=== PATIENT | female | born 1970 | race Caucasian/White ===

== ENCOUNTER → 2016-08-21 | Outpatient (CLI) | payer BC ==
[~2016-08-21] MED LIST: IBUP600T44; LRT5 PO; PREDPOW63
--- NOTE | 2016-08-24 13:32 | MAMMOGRAPHY REPORT ---
BILATERAL DIGITAL SCREENING MAMMOGRAM TOMOSYNTHESIS WITH CAD: 08/21/2016 TECHNIQUE: Breast tomosynthesis in addition to standard 2D mammography was performed. Current study was also evaluated with a Computer Aided Detection (CAD) system. COMPARISON: Comparison is made to exams dated: 08/16/2015 mammogram, 08/15/2014 mammogram, 08/11/2012 mammogram, 08/22/2013 mammogram, 08/14/2013 mammogram, and 07/31/2011 mammogram - [facility]. BREAST COMPOSITION: The tissue of both breasts is heterogeneously dense, which may obscure small ma sses. FINDINGS: There is possible architectural distortion seen within the right superior posterior breas t on the MLO view only. While this may represent normal overlapping fibroglandular tissue, recommen d spot compression tomosynthesis views and possible breast ultrasound for further evaluation. The remainder of both breasts are stable compared to prior exams, without suspicious masses, calcifi cations, or areas of architectural distortion noted. IMPRESSION: ACR BI-RADS CATEGORY 0: INCOMPLETE EVALUATION: NEED ADDITIONAL IMAGING EVALUATION Possible right breast architectural distortion, for which additional imaging evaluation is recommend ed. The patient will be called to schedule an appointment. Approximately 10% of breast cancers are not detected with mammography. A negative mammographic repor t should not delay biopsy if a clinically suggestive mass is present. Kait Reaves M.D. ah/:08/21/2016 16:21:39 Community Service Aide: Tawny RAMIREZ)([place]), [facility] letter sent: Addl Imaging 0 BI-RADS Code: ACR BI-RADS Category 0: Incomplete Evaluation: Need Additional Imaging Evaluation
== END | disposition home or self-care (01) ==
LOC: C.MAMM 08:54
PROVIDERS: ATTEND Obstetrics & Gynecology
DX: Z12.31 Encounter for screening mammogram for malignant neoplasm of breast (principal); N64.89 Other specified disorders of breast

== ENCOUNTER → 2016-09-08 | Outpatient (CLI) | payer BC ==
--- NOTE | 2016-09-08 13:03 | MAMMOGRAPHY REPORT ---
UNILATERAL RIGHT DIGITAL DIAGNOSTIC MAMMOGRAM TOMOSYNTHESIS AND TARGETED RIGHT ULTRASOUND: 09/08/2016 CLINICAL HISTORY: 46-year-old woman called back from screening mammography for possible architectura l distortion in the posterior superior right breast, only seen on the MLO view. No family history o f breast cancer. TECHNIQUE: Right XCCL tomosynthesis and spot compression right MLO 2D digital and tomosynthesis imag es were obtained. COMPARISON: Comparison is made to exams dated: 08/21/2016 mammogram, 08/16/2015 mammogram, 08/22/2013 ma mmogram - [facility], 05/14/2008, 07/04/2009 mammogram, and 07/24/2010 mammogram - [facility]. BREAST COMPOSITION: The tissue of the right breast is heterogeneously dense, which may obscure smal l masses. FINDINGS: On the spot compression right MLO view including tomosynthesis images there is effacement of the possible architectural distortion as seen on the 08/21/2016 screening mammogram. There is n o evidence of focal architectural distortion, a persistent mass or a suspicious cluster of microcalc ifications. Real-time high-resolution sonographic evaluation was performed throughout the superior right breast including the retroareolar axis, 4:00 and 8:00 axes. Normal heterogeneous echotexture fibroglandula r tissue is seen without a discrete solid or cystic mass. IMPRESSION: ACR BI-RADS CATEGORY 2: BENIGN, TARGETED ULTRASOUND ACR BI-RADS CATEGORY 2: BENIGN There is effacement of the possible architectural distortion in the superior posterior right breast, and no suspicious sonographic correlate. This most likely represented normal overlapping fibroglan dular tissue. There is no mammographic or targeted sonographic evidence of malignancy. Return to an nual mammogram screening schedule is recommended. Given the heterogeneously dense breasts and multiple prior callbacks from screening, consider additi onal screening with complete breast ultrasound for dense breasts, which could be scheduled in conjun ction with screening mammography. These results and recommendations were discussed with the patient at the time of the exam. Approximately 10% of breast cancers are not detected with mammography. A negative mammographic repor t should not delay biopsy if a clinically suggestive mass is present. Kay Schaefer M.D. ay/:09/08/2016 11:35:38 Automobile Body Repairer Helper: Rafaela INGRAM(R)(M), [facility] letter sent: Normal / BI-RADS Code: ACR BI-RADS Category 2: Benign Ultrasound BI-RADS: ACR BI-RADS Category 2: Benign
== END | disposition home or self-care (01) ==
LOC: C.MAMM 11:07
PROVIDERS: ATTEND Obstetrics & Gynecology
DX: R92.8 Other abnormal and inconclusive findings on diagnostic imaging of breast (principal)

== ENCOUNTER → 2016-09-11 | Outpatient (CLI) | payer BC | END | disposition home or self-care (01) | LOC: C.PAPS 11:44 | PROVIDERS: ATTEND Obstetrics & Gynecology | DX: Z01.419 Encounter for gynecological examination (general) (routine) without abnormal findings (principal) ==

== ENCOUNTER → 2017-08-23 | Outpatient (CLI) | payer OTHER ==
--- NOTE | 2017-08-23 15:04 | MAMMOGRAPHY REPORT ---
BILATERAL DIGITAL SCREENING MAMMOGRAM TOMOSYNTHESIS WITH CAD: 08/23/2017 CLINICAL HISTORY: Routine screening. TECHNIQUE: Breast tomosynthesis in addition to standard 2D mammography was performed. Current study was also evaluated with a Computer Aided Detection (CAD) system. COMPARISON: Comparison is made to exams dated: 09/08/2016 mammogram, 08/21/2016 mammogram, 08/16/2015 ma mmogram, 08/15/2014 mammogram, 08/14/2013 mammogram, and 08/11/2012 mammogram - [facility]ter. BREAST COMPOSITION: The tissue of both breasts is heterogeneously dense, which may obscure small mas ses. FINDINGS: The parenchymal pattern is similar to prior mammograms. There are a few stable benign-carmen earing round and punctate microcalcifications. No developing mass, architectural distortion or clust er of suspicious microcalcifications is seen in either breast. IMPRESSION: ACR BI-RADS CATEGORY 2: BENIGN There is no mammographic evidence of malignancy. A 1 year screening mammogram is recommended. The pa tient will receive written notification of the results. Approximately 10% of breast cancers are not detected with mammography. A negative mammographic report should not delay biopsy if a clinically suggestive mass is present. Kay Schaefer M.D. ay/:08/23/2017 09:50:18 Certified Public Accountant: Tiff INGRAM(Mayte)(M), [facility] letter sent: Normal 1/2 BI-RADS Code: ACR BI-RADS Category 2: Benign
== END | disposition home or self-care (01) ==
LOC: C.MAMM 09:14
PROVIDERS: ATTEND Obstetrics & Gynecology
DX: Z12.31 Encounter for screening mammogram for malignant neoplasm of breast (principal)